=== PATIENT | male | born 1970 | race African-American/Black ===

== ENCOUNTER → 2020-04-12 | Day surgery (SDC) | payer OTHER ==
[~2020-04-12] MED LIST: ASPI-630 PO; BENZ-8 PO; IV RINGERS,LACTATED 1000ML 1,000 ML IV ONE; LIDOCAINE 2% PF 5 ML VIAL. ONE; LISI-379 PO; MELO15TA23 PO; METF500T16 PO; PROPOFOL 10 MG/ML (20ML) VIAL. IV ONE
--- NOTE | 2020-04-12 13:01 | HP ---
ADMIT DATE: 04/12/2020 REASON: Colorectal screening. HISTORY OF PRESENT ILLNESS: A 50-year-old -[place] male with past medical history significant for diabetes and osteoarthrosis, seen for screening colon exam. He had colonic polyps in 2016. Bowel habits are formed without constipation or diarrhea. Family history is negative for colon cancer. Weight and appetite are stable. He is without additional complaints. PAST MEDICAL HISTORY: Diabetes, hypertension, history of colonic polyps. ALLERGIES: None. MEDICATIONS: Include aspirin, benzonatate, lisinopril, meloxicam, metformin. FAMILY AND SOCIAL HISTORY: Significant for diabetes with mother and sister. Hypertension in mother, brother and sister. Nondrinker, nonsmoker. PAST SURGICAL HISTORY: Status post cholecystectomy. REVIEW OF SYSTEMS: Per records. PHYSICAL EXAMINATION: GENERAL: Reveals a well-nourished, well-developed -[place] male who is alert, cooperative, in no acute distress. VITAL SIGNS: Temperature 97.3, pulse 72, respirations 20. LUNGS: Clear. CARDIOVASCULAR: Reveals an S1, S2 without S3, S4 or appreciable murmur. ABDOMEN: With a soft abdomen, normal bowel sounds, without appreciable hepatosplenomegaly. EXTREMITIES: Reveals no cyanosis, clubbing or edema. ASSESSMENT: History of colonic polyps. RECOMMENDATIONS: Surveillance exam is recommended at this time. Risks and benefits of procedure including risk of hemorrhage and perforation have been previously discussed. The patient is willing to proceed. FAYE PAIGE MD DR: JUAN/mc JOB#: [id number] / [id number]
[2020-04-12 14:06] VITALS: BP 106/64
== END ==
LOC: ENDOS 11:08 → EEVIPCON 12:00
PROVIDERS: ATTEND Internal Medicine Gastroenterology
DX: Z12.11 Encounter for screening for malignant neoplasm of colon (principal); I10 Essential (primary) hypertension; E11.9 Type 2 diabetes mellitus without complications; Z90.49 Acquired absence of other specified parts of digestive tract; Z86.010 Personal history of colon polyps; Z83.3 Family history of diabetes mellitus; Z82.49 Family history of ischemic heart disease and other diseases of the circulatory system; Z79.84 Long term (current) use of oral hypoglycemic drugs
CPT/HCPCS: 45378; J2704